=== PATIENT | female | born 1975 | race African-American/Black ===

== ENCOUNTER 2016-12-03 23:50 | Emergency (ER) | payer OTHER | END 2016-12-04 00:18 | disposition home or self-care (01) | LOC: ER 23:50 | DX: I10 Essential (primary) hypertension (principal); Z76.0 Encounter for issue of repeat prescription; J45.909 Unspecified asthma, uncomplicated; F17.200 Nicotine dependence, unspecified, uncomplicated | CPT/HCPCS: 99283; A9270-GY ==